=== PATIENT | male | born 1975 | race Caucasian/White ===

== ENCOUNTER 2018-11-11 09:54 | Emergency (ER) | payer SELFPAY ==
[~2018-11-11] VITALS: Ht 180.3 cm; Wt 100.0 kg
[2018-11-11 09:54] VITALS: BP 116/82
== END 2018-11-11 10:15 | disposition left against medical advice (07) ==
LOC: EMS 09:58
DX: Z53.21 Procedure and treatment not carried out due to patient leaving prior to being seen by health care provider (principal)